=== PATIENT | male | born 1970 | race Caucasian/White ===

== ENCOUNTER 2018-03-27 11:00 | Emergency (ER) | payer SELFPAY ==
[~2018-03-27] VITALS: Ht 185.4 cm; Wt 76.2 kg
[2018-03-27] MEDS ORDERED: NKM (11:13)
[2018-03-27 11:15] VITALS: BP 124/61
[2018-03-27] MEDS ORDERED: Ketorolac 60mg Inj IM ONE (11:30)
--- NOTE | 2018-03-27 11:30 | Emergency Room Report ---
History of Present Illness General Chief Complaint: Upper Extremity Injury Source: Patient Present Illness HPI Patient states that he was skateboarding yesterday. He crashed and put out his left arm. He fell on the the outstretched left arm. He states he has pain in his forearm and left hand. He has no other injuries or complaints. Allergies: Coded Allergies: No Known Allergies (Unverified , 03/27/18) Patient History Past Medical History: none, see triage record Social History: Reports: smoking, alcohol use, drug use Reviewed Nursing Documentation: PMH: Agreed; PSxH: Agreed Nursing Documentation-PMH Past Medical History: No Stated History Review of Systems All Other Systems: negative except mentioned in HPI Physical Exam Vital Signs Date Time Temp Pulse Resp B/P (MAP) Pulse Ox O2 Delivery O2 Flow Rate FiO2 03/27/18 11:05 98.3 76 18 120/65 96 Room Air 98.2 Sp02 EP Interpretation: reviewed, normal General Appearance: no apparent distress, alert, GCS 15, non-toxic Head: normocephalic, atraumatic Eyes: bilateral eye normal inspection, bilateral eye PERRL ENT: hearing grossly normal, normal pharynx, no angioedema, normal voice Neck: full range of motion, supple/symm/no masses Respiratory: no respiratory distress, no retraction, no accessory muscle use, speaking full sentences Rectal: deferred Musculoskeletal: back normal, gait/station normal, other - TTP mid forearm w/ palpable deformity. TTP anterior hand carpal bones. Abrasions/small skin avulsions on R. anterioro palm. Neurologic: alert, oriented x3, responsive, motor strength/tone normal, sensory intact, speech normal Psychiatric: judgement/insight normal, memory normal, mood/affect normal, no suicidal/homicidal ideation Skin: warm/dry, well hydrated, other - See above in [facility] Medical Decision Making Diagnostic Impression: Primary Impression: Forearm contusion Additional Impressions: Hand contusion Wrist sprain ER Course The patient underwent forearm, wrist and hand x-rays showed no fracture. The patient was given a splint for comfort. The patient states that his tetanus is up to date and so he was not given this booster. No emergency medical condition was identified. Patient's given return precautions and follow-up instructions. I warned the patient that plain x-rays have a significant false-negative rate. Factors, significant soft tissue injuries, and other pathology may be present even though not seen on x-ray. Injuries serious enough to ultimately require surgery may be present with normal x-rays. This can occur because some fractures or not initially visible on plain film x-rays or, rarely, the radiologist may discover a subtle fracture that I missed on my preliminary read. It was explained that close outpatient followup is required to evaluate this possibility. If all symptoms resolve or improve significantly in the coming weeks, no further testing is needed. However, if the pain/symptoms persist, additional studies such as MRI/CT or repeat x-ray would be needed to rule out the possibility of serious soft tissue injury. The patient agreed to followup as directed. Other X-Ray Diagnostic Results Other X-Ray Diagnostic Results : X-Ray ordered: L. forearm, L. wrist, L. hand # of Views/Limited Vs Complete: Complete Last Vital Signs Date Time Temp Pulse Resp B/P (MAP) Pulse Ox O2 Delivery O2 Flow Rate FiO2 03/27/18 11:05 98.3 76 18 120/65 96 Room Air 98.2 Disposition: HOME, SELF-CARE Condition: Improved [facility] PAL[facility] D.O. Mar 27, 2018 11:30
--- NOTE | 2018-03-27 12:19 | Diagnostic Imaging Report ---
Indication: Pain Forearm pain Findings: 2 views of the left forearm were obtained. No acute fractures, malalignment, erosions or periostitis are identified. Bone mineralization is within normal limits. Soft tissues are unremarkable. Impression: Negative for acute injury.
--- NOTE | 2018-03-27 12:20 | Diagnostic Imaging Report ---
Indication: Pain left wrist pain Findings: 3 views of the left wrist were obtained. No acute fractures, malalignment, erosions or periostitis are identified. There is spur formation involving the distal radial ulnar joint. There is mild narrowing of the radiocarpal joint. Soft tissues are unremarkable. Impression: No acute findings. Arthrosis
--- NOTE | 2018-03-27 12:23 | Diagnostic Imaging Report ---
Indication: pain. Left hand pain Findings: 3 views of the left hand were obtained. Normal alignment is demonstrated. No acute fractures, erosions, or periosteal reaction are seen. Soft tissues are unremarkable. Impression: No acute findings.
[2018-03-27] MEDS ORDERED: IBUPROFEN800 MG ORAL (13:32)
[2018-03-27 13:40] VITALS: BP 118/61
== END 2018-03-27 13:43 | disposition home or self-care (01) ==
LOC: EMR 11:32
DX: S50.12XA Contusion of left forearm, initial encounter (principal); S60.222A Contusion of left hand, initial encounter; S63.502A Unspecified sprain of left wrist, initial encounter; V00.131A Fall from skateboard, initial encounter; Y93.51 Activity, roller skating (inline) and skateboarding; Y92.9 Unspecified place or not applicable
CPT/HCPCS: 96372; 99283